=== PATIENT | female | born 1990 | race American Indian/Alaskan Native ===

== ENCOUNTER 2021-01-15 23:01 | Outpatient (CLI) | payer MEDICAID ==
[2021-01-15 23:39] VITALS: BP 123/67
[2021-01-15] MEDS ORDERED: LACTATED RINGERS 1,000 ML IV ONE (23:40)
[2021-01-16 00:02] LABS: Bacteria,Urine 1+ /HPF (Negative); Bilirubin,Urine NEG (Negative); Blood,Urine SM (Negative); Color,Urine Straw (Yellow); Mucus,Urine FEW /HPF; Urobilinogen,Urine < 2.0 mg/dL (<2.0)
== END 2021-01-16 00:38 | disposition home or self-care (01) ==
LOC: TRG 23:01 → APU 23:02 → TRG 01-16 00:38
PROVIDERS: ATTEND Obstetrics & Gynecology
DX: O26.852 Spotting complicating pregnancy, second trimester (principal); Z3A.22 22 weeks gestation of pregnancy
CPT/HCPCS: 59025; 81001

== ENCOUNTER 2021-05-04 21:47 | Outpatient (CLI) | payer OTHER, MEDICAID ==
[2021-05-04 22:16] VITALS: BP 131/79
--- NOTE | 2021-05-05 01:42 | Ultrasound Report ---
ULTRASOUND OBSTETRIC LIMITED ULTRASOUND BIOPHYSICAL PROFILE INDICATION / CLINICAL INFORMATION: Evaluate wellbeing. COMPARISON: None available. FINDINGS: BREATHING MOVEMENT = 2 GROSS BODY MOVEMENT = 2 TONE = 2 QUALITATIVE AMNIOTIC FLUID VOLUME = 2 TOTAL BIOPHYSICAL SCORE = 8/8 AMNIOTIC FLUID INDEX (cm) = 11.4 PRESENTATION: Cephalic. HEART RATE (beats per minute): 140 ADDITIONAL FINDINGS: None. IMPRESSION: 1. Biophysical Score = 8/8 Signer Name: Parmjit Frost MD Signed: 05/05/2021 1:37 AM Workstation Name: [id number]
== END 2021-05-05 01:15 | disposition home or self-care (01) ==
LOC: TRG 21:47 → APU 21:58 → TRG 05-05 01:15
PROVIDERS: ATTEND Obstetrics & Gynecology
DX: Z34.93 Encounter for supervision of normal pregnancy, unspecified, third trimester (principal); Z3A.38 38 weeks gestation of pregnancy
CPT/HCPCS: 59025; 76815; 76819; 82962

== ENCOUNTER 2021-05-13 08:35 | Inpatient (IN) | payer OTHER, MEDICAID ==
[2021-05-13] MEDS ORDERED: LOPERAMIDE 2 MG CAP PO PRN (08:50)
[2021-05-13] MEDS ORDERED: AMPICILLIN/NS 2 GM/100 ML 2 GM/100 ML BAG IV ONE (08:50)
[2021-05-13] MEDS ORDERED: OXYTOCIN DRIP 30 UNITS/500 ML BAG IV SCH ×3 (09:00→19:00)
[2021-05-13] MEDS ORDERED: DEXTROSE 50% IN WATER (25GM) 50 ML SYRINGE IV PRN (09:00)
[2021-05-13] MEDS ORDERED: ePHEDrine SULFATE 50 MG/1 ML INJ IV PRN ×2 (09:00→14:36)
[2021-05-13] MEDS ORDERED: fentaNYL 100 MCG/2 ML INJ IV PRN (09:00)
[2021-05-13] MEDS ORDERED: METHYLERGONOVINE MALEATE 0.2 MG/ML VIAL IM PRN (09:30)
[2021-05-13] MEDS ORDERED: INSULIN REGULAR, HUMAN 100 UNITS/1 ML SUB-Q PRN (09:30)
[2021-05-13] MEDS ORDERED: NALOXONE 0.4 MG/1 ML INJ IV PRN (09:30)
[2021-05-13] MEDS ORDERED: BUTORPHANOL 2 MG/1 ML INJ IV PRN (10:00)
[2021-05-13] MEDS ORDERED: LIDOCAINE (2%) 20 MG/1 ML VIAL 20 ML MDV INFILTRATI NR (10:00)
[2021-05-13] MEDS ORDERED: DINOPROSTONE 10 MG VAG SUPP VG ONE (10:00)
[2021-05-13] MEDS ORDERED: miSOPROStol 200 MCG TAB PR PRN (10:00)
[2021-05-13] MEDS ORDERED: TERBUTALINE 1 MG/1 ML INJ SUB-Q PRN (10:00)
[2021-05-13] MEDS ORDERED: ONDANSETRON 4 MG/2 ML INJ IV PRN (10:00)
[2021-05-13] MEDS ORDERED: OXYTOCIN 10 UNIT/1 ML INJ IM PRN (10:00)
[2021-05-13] MEDS ORDERED: CARBOPROST TROMETHAMINE 250 MCG/1 ML INJ IM PRN (10:00)
[2021-05-13 10:01] LABS: Hemoglobin 12.4 gm/dl (10.1-14.3); Mean Corpuscular HGB Conc 33 % (30-34); Mean Corpuscular Volume 91 fl (79-97); Platelet Count 356 K/mm3 (140-440); Red Cell Distribution Width 14.9 % (13.2-15.2)
[2021-05-13] MEDS: LACTATED RINGERS 1,000 ML IV SCH ×3 (10:11→18:01)
--- NOTE | 2021-05-13 12:41 | History and Physical Report ---
History of Present Illness Date of examination: 05/13/21 Date of admission: 05/13/21 08:35 Chief complaint: scheduled induction of labor History of present illness: Pt is a 30 year old JARVIS 05/18/21 at 39w2d who presents for scheduled induction of labor secondary to gestational diabetes and morbid obesity. She reports irregular contractions, and denies vaginal bleeding or leakage of fluid. She has had care at [facility] since transfer into care at 26 wks complicated by morbid obesity, gestational diabetes diet controlled, cervical incompetence s/p cerclage with removal on 04/25/21, and GBS positive status. Past History Past Medical History: diabetes (gestational diabetes ), other (morbid obesity ) Past Surgical History: DIRECTOR SERVICE/uterine surgery (cerclage 12/02/20 ) Family/Genetic History: diabetes, heart disease Social history: no significant social history - Obstetrical History Expected Date of Delivery: 05/18/21 Actual Gestation: 39 Week(s) 2 Day(s) : 2 Para: 0 Hx # Term Pregnancies: 0 Number of Pregnancies: 0 Spontaneous Abortions: 1 Induced : 0 Number of Living Children: 0 Medications and Allergies Allergies Allergy/AdvReac Type Severity Reaction Status Date / Time No Known Allergies Allergy Verified 05/13/21 09:43 Home Medications Medication Instructions Recorded Confirmed Last Taken Type No.137/Iron/Folic Acd 1 each PO DAILY 05/13/21 05/13/21 05/12/21 History [[facility] Vitamins Tablet] Active Meds: Active Medications Acetaminophen (Acetaminophen 325 Mg Tab) 650 mg PO Q4H PRN PRN Reason: Pain, Mild (1-3) Butorphanol Tartrate (Butorphanol 2 Mg/1 Ml Inj) 1 mg IV Q2H PRN PRN Reason: Pain, Moderate(4-6) LABOR PAIN Carboprost Tromethamine (Carboprost Tromethamine 250 Mcg/1 Ml Inj) 250 mcg IM ONCE PRN PRN Reason: Uterine Bleeding Dextrose (Dextrose 50% In Water (25gm) 50 Ml Syringe) 50 ml IV Q30MIN PRN; Protocol PRN Reason: Hypoglycemia Ephedrine Sulfate (Ephedrine Sulfate 50 Mg/1 Ml Inj) 10 mg IV Q2M PRN PRN Reason: Hypotension Fentanyl (Fentanyl 100 Mcg/2 Ml Inj) 100 mcg IV Q2H PRN PRN Reason: Pain,Severe (7-10) LABOR PAIN Oxytocin/Sodium Chloride (Pitocin/Ns 30 Unit/500ml) 30 units in 500 mls @ 2 mls/hr IV TITR CAROL; Protocol Last Titration: 05/13/21 11:40 Dose: 6 mls/hr, 6 mls/hr Documented by: Lactated Ringer's (Lactated Ringers) 1,000 mls @ 125 mls/hr IV DIRECT CAROL Last Admin: 05/13/21 12:20 Dose: 125 mls/hr Documented by: Oxytocin/Sodium Chloride (Pitocin/Ns 30 Unit/500ml) 30 units in 500 mls @ 40 mls/hr IV TITR CAROL; Protocol Ampicillin Sodium (Ampicillin/Ns 1 Gm/50 Ml) 1 gm in 50 mls @ 100 mls/hr IV Q4H CAROL; Protocol Insulin Human Regular (Insulin Regular, Human 100 Units/1 Ml) 0 units SUB-Q Q4H PRN; Protocol PRN Reason: Hyperglycemia Loperamide HCl (Loperamide 2 Mg Cap) 2 mg PO ONCE PRN PRN Reason: give with Hemabate Methylergonovine Maleate (Methylergonovine Maleate 0.2 Mg/Ml Vial) 0.2 mg IM ONCE PRN PRN Reason: Uterine Bleeding Mineral Oil (Mineral Oil 30 Ml Oral Liqd) 30 ml PO QHS PRN PRN Reason: Constipation Misoprostol (Misoprostol 200 Mcg Tab) 800 mcg NM ONCE PRN PRN Reason: Uterine Bleeding Naloxone HCl (Naloxone 0.4 Mg/1 Ml Inj) 0.1 mg IV Q2MIN PRN PRN Reason: Res Rate </= 8 or 02 SAT < 92% Ondansetron HCl (Ondansetron 4 Mg/2 Ml Inj) 4 mg IV Q8H PRN PRN Reason: Nausea And Vomiting Oxytocin (Oxytocin 10 Unit/1 Ml Inj) 10 unit IM ONCE PRN PRN Reason: Uterine Bleeding Terbutaline Sulfate (Terbutaline 1 Mg/1 Ml Inj) 0.25 mg SUB-Q ONCE PRN PRN Reason: Hyperstimulation/Hypertonicity Review of Systems All systems: negative - Vital Signs Vital signs: Vital Signs Pulse Pulse Ox 121 H 96 05/13/21 09:29 05/13/21 09:29 Temp Pulse Resp BP Pulse Ox 98.8 F 88 14 143/79 98 05/13/21 09:31 05/13/21 12:39 05/13/21 09:31 05/13/21 12:31 05/13/21 12:39 - Physical Exam Breasts: Positive: deferred Abdomen: Positive: soft (obese, gravid ) Genitourinary (Female): Positive: normal external genitalia Uterus: Positive: enlarged Extremities: Positive: edema (trace) - Obstetrical FHR: auscultation normal Uterine Contraction Monitor Mode: External Cervical Dilatation: 6 Cervical Effacement Percentage: 90 station: -2 Uterine Contraction Pattern: Regular Uterine Tone Measurement Phase: Resting Uterine Contraction Intensity: Moderate Results Result Diagrams: 05/13/21 09:30 Abnormal lab results 05/13/21 Range/Units 11:51 POC Glucose 65 L (70-105) mg/dL All other labs normal. Assessment and Plan A: IUP at 39w2d Gestational Diabetes- diet controlled Morbid Obesity Cervical Incompetence s/p cerclage placement in November 2020, and removal on April 25, 2021 GBS Positive P: Admit to labor and delivery Ampicillin for GBS prophylaxis Pitocin augmentation AROM- clear fluid Accuchek q 4 h in latent labor, then q 1 hour in active labor Closely monitor maternal and status
[2021-05-13] MEDS ORDERED: AMPICILLIN/NS 1 GM/50 ML 1 GM/50 ML BAG IV SCH (13:00)
[2021-05-13] MEDS ORDERED: fentaNYL-BUPIV 2 MCG/ML-0.125% 200 MCG/100 ML BAG EPIDURAL ONE (14:02)
[2021-05-13] MEDS ORDERED: NALOXONE 2 MG/2 ML INJ IV PRN (14:36)
--- NOTE | 2021-05-13 14:36 | Anesthesia Consultation ---
Anesthesia Consult and Med Hx Date of service: 05/13/21 - Airway Anesthetic Teeth Evaluation: Good ROM Head & Neck: Adequate Mental/Hyoid Distance: Adequate Mallampati Class: Class II Intubation Access Assessment: Probably Good - Pre-Operative Health Status ASA Pre-Surgery Classification: ASA3 Proposed Anesthetic Plan: Epidural, Spinal - Pre-Anesthesia Comment Pre-Anesthesia Comments: CSE for labor analgesia - Pulmonary Hx Smoking: Yes (former smoker) Hx Respiratory Symptoms: No - Cardiovascular System Hx Hypertension: No Hx Heart Attack/AMI: No - Central Nervous System Hx Neuromuscular Disorder: No CVA: No - Endocrine Hx Renal Disease: No Hx Liver Disease: No Hx Non-Insulin Dependent Diabetes: Yes (gDM; no insulin) Hx Thyroid Disease: No - Hematic Hx Anemia: No - Other Systems Hx Obesity: Yes (BMI 45) - Additional Comments Anesthesia Medical History Comments: No hx coagulopathy or anticogulant use. No prior GA. Had spinal for cerclage placement without complications.
--- NOTE | 2021-05-13 14:39 | Progress Note ---
Labor Epidural - Labor Epidural Start Time: 14:07 Stop Time: 14:20 Performed by:: LILIANA TA Procedure: Patient is requesting epidural for labor pain. H&P and labs reviewed. Procedure explained, questions answered, consent obtained. Patient placed in sitting position with monitors applied. Timeout performed immediately before start of procedure. Prep/drape in usual sterile fashion. Skin localized 3 mL 1% lidocaine at L[2]-L[3] interspace. 18-gauge Klevostitead epidural needle advanced to DIRK with saline at [9] cm. No blood/CSF noted via epidural needle. 26g spinal needle advanced into intrathecal space until clear, free flowing CSF noted. 0.5cc 0.75% hyperbaric bupivacaine + 0.5cc sterile saline injected into intrathecal space. Spinal needle removed and epidural catheter advanced to [14] cm. Negative aspiration for blood and CSF via catheter, negative response to test dose 3 ml 1.5% lidocaine w/ epi. Sterile dressing applied followed by tape reinforcement. Patient tolerated procedure well. No immediate complications noted.
[2021-05-13] MEDS ORDERED: fentaNYL-BUPIV 2 MCG/ML-0.125% 200 MCG/100 ML BAG EPIDURAL SCH (15:00)
--- NOTE | 2021-05-13 17:25 | Event Note ---
Date: 05/13/21 call center dispatcher MD contacted regarding minimal to near absent variability. Category II tracing. Cervix unchanged. Plan to proceed with section as soon as OR and anesthesia staff available, as they have just have just started a c section.
[2021-05-13] MEDS ORDERED: BICITRA ORAL LIQD 30ML PO ONE (18:42)
[2021-05-13] MEDS ORDERED: METOCLOPRAMIDE 10 MG/2 ML INJ IV ONE (18:42)
[2021-05-13] MEDS ORDERED: FAMOTIDINE 20 MG/2 ML INJ IV ONE (18:42)
[2021-05-13] MEDS ORDERED: LACTATED RINGERS 1,000 ML IV SCH (18:45)
[2021-05-13] MEDS ORDERED: ceFAZolin/Water 2 GM/20 ML 2 GM/20 ML SYRINGE IV NR (19:00)
[2021-05-13] MEDS ORDERED: DEXTROSE 50% IN WATER (25GM) 50 ML SYRINGE IV ONE (19:10)
--- NOTE | 2021-05-13 19:16 | Anesthesia Day of Surgery ---
Anesthesia Day of Surgery - Day of Surgery Patient Examined: Yes Patient H&P Reviewed: Yes Patient is NPO: Yes Beta Blockers: No Cardiac Clearance: No Pulmonary Clearance: No Heri's Test: Negative
[2021-05-13] MEDS ORDERED: LIDOCAINE 2%/EPINEPHRINE 1:200,000 VIAL (20 ML) INFILTRATI ONE (19:29)
[2021-05-13] MEDS ORDERED: miSOPROStol 100 MCG TAB ONE (19:43)
[2021-05-13] MEDS ORDERED: LACTATED RINGERS 1,000 ML ONE (20:24)
[2021-05-13] MEDS ORDERED: ONDANSETRON 4 MG/2 ML INJ ONE (20:40)
[2021-05-13] MEDS ORDERED: WATER FOR IRRIG STERILE 1,500 ML BOTTLE IR ONE (20:56)
[2021-05-13] MEDS ORDERED: SODIUM CHLORIDE 0.9% IRR 1,500 ML BOTTLE IR ONE (20:56)
[2021-05-13] MEDS ORDERED: OXYTOCIN 10 UNIT/1 ML INJ ONE (21:16)
[2021-05-13] MEDS ORDERED: dexAMETHasone 20 MG/5 ML VIAL ONE (21:33)
[2021-05-13] MEDS ORDERED: BUPIVACAINE/PF (0.25%) 2.5 MG/ML 30 ML VIAL INFILTRATI ONE ×2 (21:33)
[2021-05-13] MEDS ORDERED: MINERAL OIL 30 ML ORAL LIQD PO PRN (22:00)
--- NOTE | 2021-05-13 22:16 | Procedure Note ---
OB Delivery Note - Delivery Date of Delivery: 05/13/21 Surgeon: REN MCALLISTER Estimated blood loss: other (956 mL) - Section Preop diagnosis: nonreassuring FHR tracing, other ( Intolerance to Labor ) Postop diagnosis: same section procedure: section, primary low transverse Disposition: PACU Complications: uterine atony Narrative: Please see operative report - Infant A at 1 minute: 7 at 5 minutes: 9 Gender: Male (3320g (7lb 5oz) @ 2056 pm)
--- NOTE | 2021-05-13 22:26 | Progress Note ---
Regional Anesthesia Block - Regional Anesthesia Block Start Time: 22:11 Stop Time: 22:15 Performed By:: IGNACIO FLETCHER Procedure: Patient consented for TAP block for post surgical pain management. Patient identified, monitors placed, and time out performed. TAP identified bilaterally via ultrasound. Skin prepped bilaterally with [chlorhexidine] and [22g stimuplex] needle advanced to the TAP. [Marcaine 0.25% 30ml] injected under ultrasound guidance on the [left] side. [Marcaine 0.25% 30ml] injected under ultrasound guidance on the [right] side. Negative aspiration every 5mL, No change in heart rate or rhythm. Patient tolerated the procedure well. No apparent complications seen.
--- NOTE | 2021-05-13 22:31 | Operative Report ---
Operative Report Operative Report: Date of procedure: May 13, 2021 Preoperative diagnosis: 1) IUP at 39w2d 2) Intolerance to Labor 3) Gestational Diabetes 4) Morbid Obesity BMI 45 5) Cervical Insufficiency Postoperative diagnosis: Same 5) Cephalopelvic Disproportion Procedure: Primary low transverse section Surgeon: Kristin Cano M.D. Anesthesia: Regional Findings: 1) Viable male , Apgars 7 and 9, weight 3320g, (7 lb 5 oz) in cephalic presentation. Nuchal Cord x 1. 2) Normal-appearing uterus ovaries and tubes Estimated blood loss: 956 mL IV fluids: 2600 mL Urine output: 250 mL, pink during the procedure, then clear at the end of the procedure Drains: Gold to gravity Specimens: Placenta to pathology Complications:None. Counts correct x 3 Disposition: Stable to PACU Indication for procedure: Pt is a 30 year old at 39w2d presents for scheduled induction secondary to gestational diabetes. She progressed to 6 cm but began to have near absent variability and late decelerations without subsequent cervical change. The decision was made to proceed with section. Operation in detail: After the risks, benefits, alternatives and complications were explained to the patient she gave informed consent for the procedure. She was subsequently taken to the operating room where regional anesthesia was noted to be adequate. She was placed in the dorsal supine position with leftward tilt and prepped and draped in a normal sterile fashion with SCDs noted to be in place and functioning. heart tones were noted prior to incision. A timeout was performed. A Pfannenstiel skin incision was made with the knife and carried down to the layer of the fascia with the Bovie. The fascia was incised in the midline and the fascial incision was extended bilaterally with the Bovie. The fascial incision was then stretched. The rectus muscles were then in the midline and partially transected for adequate visualization. The peritoneum was then entered bluntly. The peritoneal incision was extended with good visualization of the bladder. The peritoneal incision was then stretched. An Darrion retractor was placed. The bladder blade was then placed. The vesicouterine peritoneum was grasped with smooth pick ups and incised with Metzenbaum scissors. A bladder flap was not created. A transverse incision was made in the lower uterine segment with a knife and extended bilaterally with the bandage scissors. Amniotomy was performed with egress of clear fluid. head delivered with difficulty, nuchal cord x 1 was reduced, followed by delivery of the shoulders and body. bulb suctioned at delivery. Cord clamped and cut. handed to NICU staff in attendance. Cord blood was collected. The placenta was then delivered manually. The uterus was then exteriorized and cleared of all clots and debris. The hysterotomy was then reapproximated with 0 Moncryl in a running locked fashion. A second layer of the same suture was used in imbricating fashion. The hysterotomy was inspected and hemostasis was noted. The gutters were irrigated and cleared of all clots and debris. The uterus was placed back into the peritoneal cavity. The hysterotomy was again inspected and noted to be hemostatic. Surgicel was placed over the hysterotomy. The Darrion retractor was removed. The peritoneum was reapproximated with 0 Moocryl in a running fashion incorporating the rectus muscles. Surgicel was placed over the rectus muscles. The fascia was reapproximated with 0 Vicryl in a running fashion. The subcutaneous tissue was reapproximated with 3-0 Vicryl in a running fashion. The skin was reapproximated with 4-0 Vicryl in a subcuticular fashion. The incision was then covered with steri strips and a pressure dressing. The procedure was then ended. The patient tolerated the procedure well and was taken to the PACU in stable condition. All instrument, lap, and needle counts were correct 3.
[2021-05-14] MEDS ORDERED: LANOLIN/ZINC/DIMETHICONE (LANSINOH) 7 GM TP PRN (00:32)
[2021-05-14] MEDS ORDERED: MORPHINE 2 MG/1 ML INJ IV PRN (00:32)
[2021-05-14] MEDS ORDERED: WITCH HAZEL/ GLYCERIN PAD TP PRN (00:32)
[2021-05-14] MEDS ORDERED: SIMETHICONE 80 MG CHEW TAB PO PRN (00:32)
[2021-05-14] MEDS ORDERED: NALOXONE 0.4 MG/1 ML INJ IV PRN (00:32)
[2021-05-14] MEDS ORDERED: D5W/LACTATED RINGERS 1,000 ML IV SCH (00:32)
[2021-05-14] MEDS ORDERED: OXYTOCIN DRIP 30 UNITS/500 ML BAG IV SCH (00:32)
[2021-05-14] MEDS ORDERED: HYDROmorphone 1 MG/1 ML INJ IV PRN (00:32)
[2021-05-14] MEDS: ceFAZolin/NS 1 GM/50 ML 1 GM/50 ML BAG IV SCH ×2 (04:00→12:15)
[2021-05-14] MEDS: oxyCODONE /ACETAMINOPHEN 5-325MG TAB PO PRN ×2 (04:00→21:15)
[2021-05-14] MEDS: ACETAMINOPHEN 325 MG TAB PO PRN (09:35)
[2021-05-14 11:59] LABS: Hematocrit 35.3 % (30.3-42.9); Hemoglobin 11.6 gm/dl (10.1-14.3)
--- NOTE | 2021-05-14 13:37 | Progress Note ---
Assessment and Plan A:POD#1 s/p Primary C/S at term Poor pain control P: Continue with routine care and will modify pain medication for more adequate control. Subjective - Subjective Date of service: 05/14/21 Principal diagnosis: POD#1 s/p Primary C/S for NRFHTs and Cephalopelvic Disproportion Interval history: POD#1 s/p Primary C/S. Patient is overall feeling well but reporting some mild to moderate cramping. She reports no problems with ambulation, voiding and has moderate lochia. She has not had a bowel movement nor passed flatus at this time. Patient reports: voiding normally, pain poorly controlled, ambulating normally, no flatus, no bowel movement : doing well Objective - Vital Signs Latest vital signs: Vital Signs Temp Pulse Resp BP BP Pulse Ox Pulse Ox 05/14/21 08:25 97.9 F 61 22 104/60 97 05/14/21 07:30 98 05/14/21 05:00 18 05/14/21 04:00 98.6 F 77 16 117/78 05/14/21 00:09 99.2 F 76 18 133/73 99 05/14/21 00:00 98 05/13/21 23:21 84 17 127/82 97 05/13/21 23:06 90 16 99/68 99 05/13/21 22:55 91 H 16 141/68 100 05/13/21 22:42 88 21 142/86 100 05/13/21 22:40 98.8 F 05/13/21 22:31 89 14 132/75 99 05/13/21 22:15 81 16 126/76 96 05/13/21 22:10 83 16 131/86 97 05/13/21 22:05 95 H 15 133/68 99 05/13/21 22:04 97.8 F 05/13/21 19:56 95 H 98 05/13/21 19:52 90 103/57 05/13/21 19:51 90 99 05/13/21 19:46 100 H 99 05/13/21 19:41 107 H 99 05/13/21 19:36 102 H 100 05/13/21 19:31 101 H 100 05/13/21 19:29 99 05/13/21 19:28 110 H 87 05/13/21 19:26 108 H 100 05/13/21 19:23 105 H 112/68 05/13/21 19:21 93 H 100 05/13/21 19:16 91 H 99 05/13/21 19:11 99.2 F 92 H 20 100 05/13/21 19:07 101 H 122/66 05/13/21 19:06 100 H 99 05/13/21 19:01 106 H 99 05/13/21 18:57 100 H 118/71 05/13/21 18:56 107 H 82 L 05/13/21 18:51 102 H 95 05/13/21 18:46 106 H 97 05/13/21 18:42 89 83 L 05/13/21 18:41 80 100 05/13/21 18:37 83 111/64 05/13/21 18:36 92 H 100 05/13/21 18:31 86 100 05/13/21 18:26 83 100 05/13/21 18:22 98.9 F 83 118/65 05/13/21 18:21 87 100 05/13/21 18:16 75 100 05/13/21 18:11 77 99 05/13/21 18:07 95 H 79/52 05/13/21 18:06 100 H 99 05/13/21 18:00 109 H 99 05/13/21 17:59 86 0 L 05/13/21 17:55 89 98 05/13/21 17:52 73 113/66 87 05/13/21 17:50 88 99 05/13/21 17:45 103 H 100 05/13/21 17:40 101 H 100 05/13/21 17:38 83 94 05/13/21 17:35 108 H 100 05/13/21 17:30 98 H 99 05/13/21 17:25 104 H 99 05/13/21 17:24 97 H 117/78 05/13/21 17:20 110 H 100 05/13/21 17:15 85 99 05/13/21 17:10 82 99 05/13/21 17:07 90 96/57 05/13/21 17:06 90 82 L 05/13/21 17:05 83 100 05/13/21 17:00 92 H 100 05/13/21 16:55 91 H 99 05/13/21 16:53 78 100/61 05/13/21 16:50 70 100 05/13/21 16:45 73 100 05/13/21 16:40 78 100 05/13/21 16:38 82 102/66 05/13/21 16:35 89 100 05/13/21 16:30 85 100 05/13/21 16:25 77 99 05/13/21 16:22 98.4 F 75 96/59 05/13/21 16:20 90 99 05/13/21 16:15 74 100 05/13/21 16:10 84 100 05/13/21 16:08 88 90/56 05/13/21 16:05 83 100 05/13/21 16:00 94 H 99 05/13/21 15:55 93 H 98/59 100 05/13/21 15:53 106 H 70 L 05/13/21 15:50 94 H 100 05/13/21 15:45 90 100 05/13/21 15:43 102 H 94/57 05/13/21 15:41 126 H 87 05/13/21 15:40 111 H 98 05/13/21 15:35 109 H 91 05/13/21 15:33 114 H 90 05/13/21 15:30 103 H 99 05/13/21 15:25 77 98 05/13/21 15:22 99 H 103/49 05/13/21 15:20 95 H 100 05/13/21 15:14 111 H 98 05/13/21 15:10 88 120/56 05/13/21 15:09 126 H 100 05/13/21 15:04 102 H 99 05/13/21 14:59 97 H 100 05/13/21 14:54 85 100 05/13/21 14:53 95 H 120/58 05/13/21 14:51 113 H 51 L 05/13/21 14:49 102 H 100 05/13/21 14:44 104 H 100 05/13/21 14:39 101 H 100 05/13/21 14:37 93 H 118/59 05/13/21 14:36 100 H 117/58 05/13/21 14:34 99 05/13/21 14:33 107 H 123/64 05/13/21 14:32 106 H 132/67 05/13/21 14:29 110 H 124/57 99 05/13/21 14:28 58 L 82 L 05/13/21 14:27 109 H 118/56 05/13/21 14:25 100 H 114/58 05/13/21 14:24 117 H 126/61 99 05/13/21 14:23 84 74 L 05/13/21 14:19 105 H 145/65 100 05/13/21 14:17 100 H 154/65 05/13/21 14:15 112 H 172/70 05/13/21 14:14 111 H 100 05/13/21 14:13 122 H 167/74 84 05/13/21 14:11 96 H 157/99 05/13/21 14:09 110 H 99 05/13/21 14:04 102 H 99 05/13/21 14:00 99.1 F 05/13/21 13:59 108 H 95 05/13/21 13:54 100 H 96 05/13/21 13:49 102 H 96 05/13/21 13:44 91 H 98 05/13/21 13:39 93 H 99 Intake and Output 05/13/21 05/14/21 05/14/21 23:59 07:59 15:59 Intake Total 3414.517 50 120 Output Total 1650 2700 350 Balance 1764.517 -4720 -230 Intake: IV 3414.517 50 ANCEF/NS 1 GM/50 ML 1 gm 50 In 50 ml @ 100 mls/hr IV Q8H CAROL Rx#:[id number] Lactated Ringers 1,000 ml 710.417 @ 125 mls/hr IV DIRECT CAROL Rx#:[id number] PITOCin/NS 30 UNIT/500ML 4.1 30 units In 500 ml @ 2 mls/hr IV TITR CAROL Rx#: [id number] Oral 120 Output: Urine 1650 2700 350 Indwelling Catheter 2700 350 Uretheral (Gold) 1000 Other: Total, Intake Amount 120 Total, Output Amount 2700 350 Estimated Blood Loss 956 - Labs Labs: Abnormal lab results 05/13/21 05/13/21 05/13/21 Range/Units 19:04 19:48 23:13 POC Glucose 56 L 115 H 57 L (70-105) mg/dL 05/14/21 05/14/21 05/14/21 Range/Units 01:29 03:05 07:59 POC Glucose 119 H 124 H 129 H (70-105) mg/dL
--- NOTE | 2021-05-14 14:54 | Post Anesthesia Evaluation ---
- Post Anesthesia Evaluation Patient Participated: Yes Airway Patent: Yes Stable Respiratory Function: Yes Nausea/Vomiting: No Temp > 96.8F: Yes Pain Manageable: Yes Adequeate Hydration: Yes Anesthesia Complications: No Block Receding Appropriately: Yes Patient on Ventilator: No
[2021-05-15] MEDS: ACETAMINOPHEN 325 MG TAB PO PRN (05:47)
[2021-05-15] MEDS ORDERED: MEASLES, MUMPS & RUBELLA 12,500 UNIT/0.5 ML VACCINE SUB-Q ONE (06:00)
[2021-05-15] MEDS ORDERED: TETANUS,DIPH,PERTUSS(ACELL) VACCINE 0.5 ML SYRINGE IM ONE (06:00)
--- NOTE | 2021-05-15 08:18 | Progress Note ---
Assessment and Plan A: POD#2 s/p primary at term Morbid Obesity Delayed Return of Bowel Function P: Routine postop care Lactulose Remove bandage today Subjective - Subjective Date of service: 05/15/21 Principal diagnosis: POD#2 s/p Primary C/S for NRFHTs and Cephalopelvic Disproportion Interval history: Pt denies flatus. No nausea or vomiting. Vaginal lochia is minimal. Ambulating minimally. Patient reports: appetite normal, voiding normally, pain well controlled, no flatus, no bowel movement : doing well Objective - Vital Signs Latest vital signs: Vital Signs Temp Pulse Resp BP BP Pulse Ox Pulse Ox 05/15/21 05:46 97 05/15/21 03:30 98 05/15/21 01:55 97 05/14/21 23:45 97 05/14/21 21:15 97 05/14/21 19:40 97 05/14/21 16:14 98.1 F 68 16 114/75 100 05/14/21 08:25 97.9 F 61 22 104/60 97 Intake and Output 05/14/21 05/15/21 05/15/21 22:59 06:59 14:59 Intake Total 1080 200 Output Total 600 Balance 480 200 Intake: Oral 480 200 Intake, Free Water 600 Output: Urine 600 Void 600 Other: Total, Intake Amount 480 200 Total, Output Amount 350 # Voids Void 1 - Exam Breasts: Present: deferred Abdomen: Present: soft (obese ), distention (moderate ) Uterus: Present: fundal height below umbilicus Extremities: Present: edema (trace) Incision: Present: dressed
[2021-05-15] MEDS: IBUPROFEN 600 MG TAB PO SCH ×3 (11:01→23:43)
[2021-05-15] MEDS: LACTULOSE 20 GM/30 ML ORAL LIQD PO SCH ×2 (11:02→16:43)
[2021-05-15] MEDS: oxyCODONE /ACETAMINOPHEN 5-325MG TAB PO PRN (18:52)
[2021-05-16] MEDS: IBUPROFEN 600 MG TAB PO SCH ×2 (06:22→12:30)
--- NOTE | 2021-05-16 08:03 | Progress Note ---
Assessment and Plan A: POD#3 s/p primary at term Morbid Obesity P: Routine postop care Discharge today with follow up in 2 wks for incision check Subjective - Subjective Date of service: 05/16/21 Principal diagnosis: POD#3 s/p Primary C/S for NRFHTs and Cephalopelvic Disproportion Interval history: Pt passed flatus and had a bowel movement yesterday. She feels well. Patient reports: appetite normal, voiding normally, pain well controlled, flatus, bowel movement, ambulating normally [place]: doing well Objective - Vital Signs Latest vital signs: Vital Signs Temp Pulse Resp BP Pulse Ox Pulse Ox 05/16/21 06:20 98 05/16/21 03:15 98 05/16/21 01:35 97 05/16/21 00:00 98.6 F 77 16 104/77 05/15/21 23:40 98 05/15/21 21:40 97 05/15/21 19:45 98 05/15/21 15:45 99.1 F 83 18 102/55 99 05/15/21 08:55 99 Intake and Output 05/15/21 05/16/21 05/16/21 22:59 06:59 14:59 Intake Total 660 Balance 660 Intake: Oral 360 Intake, Free Water 300 Other: Total, Intake Amount 360 # Voids Void 1 - Exam Breasts: Present: deferred Abdomen: Present: soft (obese) Uterus: Present: fundal height at umbilicus Extremities: Present: edema (trace ) Incision: Present: intact (with steristrips )
--- NOTE | 2021-05-16 08:06 | Discharge Summary ---
Providers - Providers Date of Admission: 05/13/21 08:35 Date of discharge: 05/16/21 Attending physician: REN MCALLISTER 05/14/21 00:32 Consult to Disease Intervention Specialist [CONS] Routine Reason For Exam: Primary care physician: REN MCALLISTER Hospitalization Reason for admission: induction of labor Delivery: Procedure: section, primary low transverse Procedure details: Please see delivery note Incision: intact (with steristrips ) complications: none Discharge diagnosis: IUP at term delivered [place] baby: male Hospital course: This patient was admitted for scheduled induction of labor at term secondary to gestational diabetes and morbid obesity. She ultimately underwent a primary section which she tolerated well. Her postoperative course was complicated by delayed return of bowel function but she met discharge criteria on postoperative day #3. She will follow-up in the office in 2 weeks for an incision check. Condition at discharge: Stable Disposition: 01 HOME / SELF CARE / HOMELESS - Discharge Diagnoses (1) Term of male Status: Acute (2) Morbid obesity with BMI of 45.0-49.9, adult Status: Acute (3) Gestational diabetes mellitus (GDM) affecting Status: Acute Plan - Discharge Medications Prescriptions: Ibuprofen [Motrin] 800 mg PO Q8HR PRN #30 tablet PRN Reason: Pain, Moderate (4-6) oxyCODONE /ACETAMINOPHEN [Percocet 5/325] 1 tab PO Q6HR PRN #30 tablet PRN Reason: Pain - Provider Discharge Summary Activity: routine, no sex for 6 weeks, no heavy lifting 4 weeks, no strenuous exercise Diet: routine Instructions: routine Additional instructions: [] Smoking cessation referral if applicable(refer to patient education folder for contact #) [] Refer to [facility] Booklet Call your doctor immediately for: * Fever > 100.5 * Heavy vaginal bleeding ( >1 pad per hour) * Severe persistent headache * Shortness of breath * Reddened, hot, painful area to leg or breast * Drainage or odor from incision. * Keep incision clean and dry at all times and follow doctor's instructions regarding bathing/showering - Follow up plan Follow up: REN MCALLISTER MD [Primary Care Provider] - 14 Days (Please call to schedule your incision check in 2 wks. Please schedule your son's circumcision before he is 4 wks old. )
[2021-05-16 21:26] VITALS: BP 111/67
== END 2021-05-16 19:45 | disposition home or self-care (01) | DRG 788 ==
LOC: LD 08:35 → OB 05-14 00:02
PROVIDERS: ADMIT Obstetrics & Gynecology; ATTEND Obstetrics & Gynecology
PROC: 10D00Z1 Extraction of Products of Conception, Low, Open Approach (ICD-10-PCS; principal; 2021-05-13)
PROC: 3E0T3BZ Introduction of Anesthetic Agent into Peripheral Nerves and Plexi, Percutaneous Approach (ICD-10-PCS; 2021-05-13)
PROC: 3E0234Z Introduction of Serum, Toxoid and Vaccine into Muscle, Percutaneous Approach (ICD-10-PCS; 2021-05-15)
DX: O24.429 Gestational diabetes mellitus in childbirth, unspecified control (principal); Z3A.39 39 weeks gestation of pregnancy; Z37.0 Single live birth; Z23 Encounter for immunization; Z20.822 Contact with and (suspected) exposure to COVID-19; O99.214 Obesity complicating childbirth; E66.01 Morbid (severe) obesity due to excess calories; O33.9 Maternal care for disproportion, unspecified; O76 Abnormality in fetal heart rate and rhythm complicating labor and delivery
CPT/HCPCS: 36415; 82962; 85014; 85018; 85027; 86592; 86850; 86900; 86901; 88307; G0378; J3490; J7060; J0290; J0690; J1100; J1170; J2405; J2590; J2765; J7120; J7121; U0003